=== PATIENT | female | born 1960 ===

== ENCOUNTER 2025-11-02 15:33 | Outpatient (AMB) | payer MEDICARE, MEDICAID, SELFPAY ==
--- NOTE | 2025-11-02 15:39 | A.OFFVIS_ITS ---
Intake Visit Reasons: B/L Knee Injections Intake Note: Patient is a 65 year old female here today for bilateral knee injections last injections last for 3 months looking to repeat injections [facility] Surgical History (Updated 11/01/25 @ 08:29 by Patricia Agrawal MA) History of cholecystectomy Social History (Updated 11/01/25 @ 08:30 by Patricia Agrawal MA) Alcohol intake: current Alcohol intake frequency: does not drink Patient Tobacco Use Status: Never used Tobacco Office Procedures AMB Knee Injection AMB Knee Injection Procedure Details: Bilateral Knee injection: The risks, benefits and complications of the left knee injection were discussed with the patient including but not limited to increased serum glucose, infection, nerve pain, fat atrophy, pigment augmentation, bleeding and pain. All questions were answered to the patient's satisfaction. Verbal consent was obtained. The patient was eager to proceed. Using aseptic technique with Betadine, ethyl chloride was then used to desensitize the skin. Using a 22-gauge needle 40 mg of Kenalog and 3 mL 2% lidocaine were injected into the knee joint. A Band-Aid was applied. Patient tolerated the procedure well without immediate complication. Postinjection instructions were given. The procedure was repeated on the right. Knee Injection - : Bilateral All charges added?: Procedure code (CPT) selection complete Office Meds Kenalog 40 mg/mL suspension for injection Performing Provider: GERMAN Urbina Performing Location: [facility] Administered by: GERMAN Urbina on 11/02/25 16:09 Dose Route Admin Location Dispensed Lot Number Expiration Date [facility] [place] 2[place] Implementation Analyst 40 mg intra-articular 1 mL [id number] [employer] Total Dispensed Waste 1 mL 0 % lidocaine (PF) 20 mg/mL (2 %) injection solution Performing Provider: GERMAN Urbina Performing Location: [facility] Administered by: GERMAN Urbina on 11/02/25 16:09 Dose Route Admin Location Dispensed Lot Number Expiration Date [facility] [place]NOTE 2] Implementation Analyst 60 mg intra-articular 5 mL [id number] [employer] Total Dispensed Waste 5 mL 40 % Assessment & Plan Assessment & Plan (1) Bilateral primary osteoarthritis of knee: Code(s): M17.0 - Bilateral primary osteoarthritis of knee Category: Medical Plan Ms. Powers is a 65-year-old female seen in evaluation today for bilateral knee osteoarthritis. Today she consented to bilateral knee corticosteroid injection. She was given post-injection instructions, recommend: Moist heat compresses for 15 minutes up to 5 times daily. Continue low-impact activities such as walking, biking and swimming. Follow-up with our office as needed. Thank you for allowing me to participate in the care of your patient. Orders: Orders AMB Knee Injection Today M17.0 - Bilateral primary osteoarthritis of knee Coding Level of Care Code Procedure Only Diagnoses Bilateral primary osteoarthritis of knee M17.0 CPT Codes AMB Knee Injection - Hip/Bursa Injection - 93202: Bilateral ([id number])
--- OUTSIDE RECORDS SUMMARY | 2025-11-03 00:10 | XMS_ITS | Clinical Summary ---
Author Organization [facility] Address [address] [place] [address] Phone Care Team Providers Care Ceramic Design Engineer Name Role Phone Lainey Jimenez Primary Care Provider [phone] Allergies Active Allergy Reactions Criticality Noted Date Comments Codeine 09/22/2018 Oxycodone-Acetaminophen 09/22/2018 Medications diphenoxylate-a tropine (LOMOTIL) 2.5-0.025 mg per tablet Take 1 tablet by mouth 4 times daily as needed. 5 Active sertraline (ZOLOFT) 25 mg tablet Take 1 tablet (25 mg total) by mouth 1 (one) time each day. 5 Active naloxone (NARCAN) 4 mg/0.1 mL nasal spray Administer into affected nostril(s). Active walker misc Dispense one Rolator walker. 4 Active melatonin 1 mg tablet Take 1 tablet (1 mg total) by mouth at bedtime as needed for sleep. Active Encounters Date Type Department Care Team Description 09/02/2025 Telephone Gastroenterology - [place] [address] [facility] [address] [facility] [address] [place] [address] Candida Putnam MD from Last 3 Months Social History Tobacco Use Types Packs/Day Years Used Date Smoking Tobacco: Never Alcohol Use Standard Drinks/Week Comments Not Currently 0 (1 standard drink = 0.6 oz pur e alcohol) Comments Unknown Sex and Gender Information Value Date Recorded Sex Assigned at Female 04/15/2025 9:27 AM EDT Legal Sex Female 4:56 PM EST Gender Identity Female 04/15/2025 9:27 AM EDT Sexual Orientation Straight 04/15/2025 9: 27 AM EDT Last Filed Vital Signs Vital Sign Reading Time Taken Comments Blood Pressure - - Pulse - - Temperature - - Respiratory Rate - - Oxygen Saturation - - Inhaled Oxygen Concentration - - Weight 132 kg (291 lb) 01/28/2024 3:02 PM EST Height 167.6 cm (5' 6 ) 01/28/2024 3:02 PM EST Body Mass Index 46.97 01/28/2024 3:02 PM EST Plan of Treatment Upcoming Encounters Date Type Department Care Team (Late st Contact Info) Description 12/13/2025 1:[address] [facility] [address] [place] [id number] Candida Putnam MD [address] [facility] [address] [place] [address] Health Maintenance Due Date Last Done Comments Colorectal Cancer Screening: Colonoscopy 1960 DTaP,Tdap,and Td Vaccines (1 - Tdap) 1977 Pneumococcal Vaccine: 50+ Years (1 of 1 - PCV) 2008 RSV Immunization Adult Patients (1 - Risk 50-74 years 1-dose series) 2008 Zoster Vaccines (1 of 2) 2008 Medicare Annual Wellness Visit 10/23/2022 Osteoporosis Screening (Bone Density Screening) 10/23/2022 Social Influencers of Health Screening 10/23/2022 Falls Risk Assessment 2023 Depression Screening 11/24/2024 COVID-19 Vaccine (1 - 2024-2 6 season) 2025 Influenza Vaccine (#1) 2025 Breast Cancer Screening 11/20/2025 11/20/2023 Cholesterol Screening (Lipid Panel) 09/10/2028 09/10/2023, 09/10/2023 Hepatitis C Screening Completed 09/10/2023 HIB Vaccines Aged Out No longer eligi ble based on patient's age to complete this topic HPV Vaccines Aged Out No longer eligi ble based on patient's age to complete this topic Hepatitis A Vaccines Aged Out No long er eligible based on patient's age to complete this topic Hepatitis B Vaccines Aged Out No long er eligible based on patient's age to complete this topic IPV Vaccines Aged Out No longer eligi ble based on patient's age to complete this topic MMR Vaccines Aged Out No longer eligi ble based on patient's age to complete this topic Meningococcal ACWY Vaccine Aged Out N o longer eligible based on patient's age to complete this topic Meningococcal B Vaccine Aged Out No l onger eligible based on patient's age to complete this topic RSV Immunization Patients Under 20 months Aged Out No longer eligible b ased on patient's age to complete this topic Varicella Vaccines Aged Out No longer eligible based on patient's age to complete this topic Goals Goal Patient Goal Type Associated Problems Recent Progress Patient-Stated? Author Autogenerat ed Goal Care Plan Autogenerated Problem No Isela Kennedy Procedures Procedure Name Priority Date/Time Associated Diagnosis Comments [facility] SCREENING DIGITAL Routine 11/20/2023 11:15 AM EST Encounter for screening mammogram for malignant neoplasm of breast from Last 3 Months or Most Recently Relevant to Health Maintenance Results * [facility] SCREENING DIGITAL (11/20/2023 11:15 AM EST) Anatomical Region Laterality Modality Mammography 11/19/2023 1:28 PM EST Narrative 11/20/2023 11:15 AM EST [facility] Diagnostic Imaging Department [address] [place] [address] Patient: BLESSING DE LUNA Ivy /Age/Sex: 1960 - 63 - F Unit#: [id number] Location/Status: SPDIMAM/REG CLI Mnemonic/Ordering Site: DIGSC/SPMAM Ordering Physician: LAINEY JIMENEZ [facility] Screening Digital - 11/19/23 - [id number] Report Status:Signed EXAM: [facility] Screening Digital EXAM DATE AND TIME: 11/19/2023 4:30 PM HISTORY: Screening. COMPARISON: 02/12/10 TECHNIQUE: Bilateral digital breast tomosynthesis was performed in the CC and MLO projections. Computer aided detection with Pets are family too 3D 3.1 was employed. TISSUE DENSITY: b. There are scattered areas of fibroglandular density. FINDINGS: No suspicious masses, grouped microcalcifications, or areas of architectural distortion are seen. Multiple circumscribed round masses are again seen bilaterally, without significant change since the previous study. A 15 mm nodule in the 6:00 position of the right breast has developed several coarse, eccentric calcifications, consistent with a fibroadenoma. Skin calcifications are seen. The vascularity is unremarkable. IMPRESSION: No mammographic evidence of malignancy is seen. A negative mammogram in the presence of a clinically suspicious palpable abnormality does not preclude the possibility of malignancy or alter the indications for biopsy. BI-RADS: Category 2: Benign RECOMMENDATION(S): 1: Routine screening mammogram BILATERAL in 1 year. Dictating Physician: JAZMYN WYMAN MD Electronically Signed by: JAZMYN WYMAN MD Dic Date/Time: 11/20/23 111 Sign date/Time: 11/20/23 111 Procedure Note Jazmyn Wyman MD - 12/30/2023 [facility] Diagnostic Imaging Department [address] [place] [id number] Patient: BLESSING DE LUNA/Age/Sex: 1960 - 63 - F Unit#: [id number] Location/Status: SPDIMAM/REG CLI Mnemonic/Ordering Site: [facility] Ordering Physician: LAINEY JIMENEZ [facility] Screening Digital - 11/19/23 - [id number] Report Status:Signed EXAM: [facility] Screening Digital EXAM DATE AND TIME: 11/19/2023 4:30 PM HISTORY: Screening. COMPARISON: 02/12/10 TECHNIQUE: Bilateral digital breast tomosynthesis was performed in the CCand MLO projections. Computer aided detection with Pets are family too 3D 3.1was employed. TISSUE DENSITY: b. There are scattered areas of fibroglandular density. FINDINGS: No suspicious masses, grouped microcalcifications, or areas ofarchitectural distortion are seen. Multiple circumscribed round masses are again seen bilaterally, without significant change since the previous study. A 15 mm nodule in the 6:00position of the right breast has developed several coarse, eccentriccalcifications, consistent with a fibroadenoma. Skin calcifications are seen. The vascularity is unremarkable. IMPRESSION: No mammographic evidence of malignancy is seen. A negative mammogram in the presence of a clinically suspicious palpable abnormality does not preclude the possibility of malignancy or alter the indications for biopsy. BI-RADS: Category 2: Benign RECOMMENDATION(S): 1: Routine screening mammogram BILATERAL in 1 year. Dictating Physician: JAZMYN WYMAN MD Electronically Signed by: JAZMYN WYMAN MD Dic Date/Time: 11/20/23 111 Sign date/Time: 11/20/231114 Lainey PORTER IMG BI PROCEDURES Final Result from Last 3 Months or Most Recently Relevant to Health Maintenance Additional Health Concerns Active Problems Noted Date Diagnosed Date Autogenerated Problem 10/18/2025 Insurance MEDICAID - [place] MEDICARE Care Teams Ceramic Design Engineer Relationship Specialty Start Date End Date Lainey Jimenez PA [facility] [place] [id number] PCP - General Physician Med Peds 04/15/25
== END 2025-11-02 16:05 | disposition home or self-care (01) ==
LOC: HO.HPHYS 15:34
PROVIDERS: PCP Registered Nurse; Visit Provider Physician Assistant
DX: M17.0 Bilateral primary osteoarthritis of knee (principal)
CPT/HCPCS: 20610

== ENCOUNTER → 2025-11-02 15:33 | Outpatient (BNVA) | payer MEDICARE, SELFPAY | PROVIDERS: PCP Registered Nurse; Visit Provider Physician Assistant | DX: M17.0 Bilateral primary osteoarthritis of knee (principal) | CPT/HCPCS: 20610; J2003; J3301 ==